=== PATIENT | female | born 1935 | race African-American/Black ===

== ENCOUNTER → 2021-09-06 | Outpatient (CLI) | payer MEDICARE ==
[~2021-09-06] MED LIST: LEVO0.5P MC
--- NOTE | 2021-09-08 17:25 | CARD ---
MR#: [id number] Date of Study: 09/06/2021 Ordering Physician: JOSE MAC, Referring Physician: JOSE MAC, Tech: Jennifer Smiley [facility] APPROVED REPORT EXAM: Two-dimensional and M-mode echocardiogram with Doppler and color Doppler. Other Information Quality : GoodHR: 79bpm Rhythm : NSR INDICATION Palpitations RISK FACTORS Hypertension 2D DIMENSIONS RVDd2.8 (2.9-3.5cm)Left Atrium(2D)3.1 (1.6-4.0cm) IVSd1.0 (0.7-1.1cm)Aortic Root(2D)2.7 (2.0-3.7cm) LVDd3.1 (3.9-5.9cm)LVOT Diameter2.0 (1.8-2.4cm) PWd0.9 (0.7-1.1cm)LVDs1.8 (2.5-4.0cm) FS (%) 42.3 %SV28.9 ml LVEF(%)74.8 (>50%) Aortic Valve AoV Peak Ray.123.4cm/sAoV VTI23.8cm AO Peak GR.6.1mmHgLVOT Peak Ray.87.2cm/s AO Mean GR.3mmHgAVA (VMAX)2.15cm2 Mitral Valve MV E Oxvkmtjo56.4cm/sMV DECEL [id number] MV A Vswitwip59.7cm/sE/A Ratio0.6 Pulmonary Valve PV Peak Nctwitcn07.2cm/s Tricuspid Valve TR P. Fbignohw204cm/sTR Peak Gr.24mmHg LEFT VENTRICLE The left ventricle is normal size. There is normal left ventricular wall thickness. The left ventricu lar systolic function is normal and the ejection fraction is within normal range. Estimated ejection fraction 55-60%. There is normal LV segmental wall motion. Transmitral Doppler flow pattern is Grade I-abnormal relaxation pattern. RIGHT VENTRICLE The right ventricle is normal size. There is normal right ventricular wall thickness. The right ventr icular systolic function is normal. ATRIA The left atrium size is normal. The right atrium size is normal. The interatrial septum is intact wit h no evidence for an atrial septal defect or patent foramen ovale as noted on 2-D or Doppler imaging. AORTIC VALVE The aortic valve is normal in structure and function. Doppler and Color Flow revealed no significant aortic regurgitation. There is no significant aortic valvular stenosis. MITRAL VALVE The mitral valve is normal in structure and function. There is no evidence of mitral valve prolapse. There is no mitral valve stenosis. Doppler and Color-flow revealed trace mitral regurgitation. TRICUSPID VALVE The tricuspid valve is normal in structure and function. Doppler and Color Flow revealed mild tricusp id regurgitation. Estimated PAP 25 mmHg. There is no tricuspid valve stenosis. PULMONIC VALVE Doppler and Color Flow revealed mild pulmonic valvular regurgitation. There is no pulmonic valvular s tenosis. GREAT VESSELS The aortic root is normal in size. The ascending aorta is normal in size. The IVC is normal in size a nd collapses >50% with inspiration. PERICARDIAL EFFUSION There is no evidence of significant pericardial effusion. Critical Notification Critical Value: No <Conclusion> The left ventricular systolic function is normal and the ejection fraction is within normal range. E stimated ejection fraction 55-60%. There is normal LV segmental wall motion. Signed by : Jose Mac, Electronically Approved : 09/08/2021 17:24:35
== END ==
LOC: ECHO 10:41 → EDBD 11:00
PROVIDERS: ATTEND Internal Medicine Cardiovascular Disease
DX: I07.1 Rheumatic tricuspid insufficiency (principal); I37.1 Nonrheumatic pulmonary valve insufficiency; R00.2 Palpitations; I10 Essential (primary) hypertension
CPT/HCPCS: 93306